=== PATIENT | female | born 1995 | race Caucasian/White ===

== ENCOUNTER 2022-11-06 10:48 | Emergency (ER) | payer MEDICAID, OTHER ==
[~2022-11-06] VITALS: Ht 172.7 cm; Wt 83.0 kg
[2022-11-06 10:55] VITALS: O2SAT 100
[2022-11-06] MEDS ORDERED: CEPH500T PO (11:00)
[2022-11-06] MEDS ORDERED: SULF1TAB48 PO (11:00)
[2022-11-06 12:30] VITALS: BP 122/78; PULSE 88; RESP 18; TEMP 98.7
== END 2022-11-06 12:31 | disposition home or self-care (01) ==
LOC: ER 10:48
DX: S51.811D Laceration without foreign body of right forearm, subsequent encounter (principal); Z48.00 Encounter for change or removal of nonsurgical wound dressing; Z98.890 Other specified postprocedural states; X58.XXXD Exposure to other specified factors, subsequent encounter
CPT/HCPCS: 99281; 99283